=== PATIENT | male | born 2000 | race Caucasian/White ===

== ENCOUNTER 2024-12-18 22:40 | Emergency (ER) | payer BC, SELFPAY ==
[~2024-12-18] VITALS: Ht 182.9 cm; Wt 125.0 kg
[2024-12-18] MEDS: ONDANSETRON 4MG 2ML VIAL IV ONE (23:58)
[2024-12-18] MEDS: ACETAMINOPHEN *IV* 1,000 MG in IV 1 EA IV ONE (23:58)
[2024-12-18] MEDS: NS (Normal Saline) 0.9% 1,000 ML IV ONE (23:58)
[2024-12-19 00:22] LABS: BASO # 0.1 10^3/uL (0.0-0.2); BASO % 0.4 % (0.0-1.0); EOS # 0.0 10^3/uL (0.0-0.5); EOS % 0.2 % (0.0-3.0); LYMPH # 0.7 10^3/uL (1.5-5.0); LYMPH % 5.0 % (24.0-44.0); MONO # 1.1 10^3/uL (0.0-0.8); MONO % 7.7 % (2.0-8.0); NEUTROPHILS # 12.8 10^3/uL (1.5-8.5); NEUTROPHILS % 86.1 % (36.0-66.0); PLATELET COUNT, AUTOMATED 283 10^3/uL (150-450)
[2024-12-19 00:35] LABS: ALT/SGPT 36 U/L (7.0-40); AST/SGOT 32 U/L (<34); CALCIUM LEVEL 9.6 MG/DL (8.5-10.1); CARBON DIOXIDE LEVEL 26 MMOL/L (20-31); CHLORIDE LEVEL 104 MMOL/L (98-107); CREATININE FOR GFR 0.91 MG/DL (0.70-1.30); GLOMERULAR FILTRATION RATE > 90.0 (>60); MAGNESIUM LEVEL 1.9 MG/DL (1.8-2.4); POTASSIUM SERUM 3.9 MMOL/L (3.5-5.1); SODIUM LEVEL 142 MMOL/L (136-145)
[2024-12-19] MEDS ORDERED: ISOVUE-370 76% 100 ML VIAL As Ordered ONE (00:54)
[2024-12-19 03:40] VITALS: BP 126/55; TEMP 100.1; O2SAT 98
[2024-12-23 00:52] LABS: BORRELIA SPECIES DNA NOT DETECTED (NOT DETECT)
== END 2024-12-19 03:47 | disposition home or self-care (01) ==
LOC: M ED 22:40
DX: T67.9XXA Effect of heat and light, unspecified, initial encounter (principal); Y92.832 Beach as the place of occurrence of the external cause; Y93.9 Activity, unspecified
CPT/HCPCS: 74177; 80048; 80076; 83605; 83735; 85025; 87468; 87469; 87478; 87484; 87486; 87581; 87633; 87798; 87801; 87880; 93005; 96365; 96366; 96375; 99284; J0131; J2405; Q9967